=== PATIENT | female | born 1955 ===

== ENCOUNTER 2017-06-12 12:48 | Inpatient (IN) | payer OTHER ==
[2017-06-12] MEDS ORDERED: Sodium Chloride 0.9% 500 ML IV STA (13:10)
--- NOTE | 2017-06-12 13:17 | ED PDOC ---
HPI:STROKE - Time Time: 13:12 - Historian Historian: Patient - Chief Complaint Chief Complaint: Weakness - Onset Date: 05/22/17 Time: 15:00 - Timing Timing: Currently Symptomatic - TPA Positive for Contraindication: Yes Reason tPA is not being Administered: out of thrombolytic time frame - Notes: Notes:: Pt. with dizziness off and on for 3 week and more constant today. Pt. also feels she is going to the right when walking for 3 weeks. Feels weak all over. No numbness, tingles. Mild headache, not the worst in her life. No chest pain. Today had dyspnea. No abd pain. Nasuea when dizzy. No diarrhea. No dysuria. Seen at the clinic and sent to the ED. Pt. has not been taking any of her meds. NIHSS Stroke Scale - Date/Time Evaluation Performed Date Performed: 06/12/17 Time Performed: 13:17 When Was NIHSS Performed: Baseline - How Severe is the Stroke Level of Consciousness: 0=Alert LOC to Questions: 0=Both comments correct LOC to commands: 0=Obeys both correctly Best Gaze: 0=Normal Visual: 0=No visual loss Facial: 0=Normal Motor Arm - Left: 0=No drift Motor Arm - Right: 0=No drift Motor Leg - Left: 0=No drift Motor Leg - Right: 0=No drift Limb Ataxia: 0=Absent Sensory: 0=Normal Best Language: 0=No aphasia Dysarthia: 0=Normal articulation Extinction & Inattention (Neglect): 0=Normal, no object Score: 0 rTPA Inclusion/Exclusion - Refusal of Treatment Patient Refused Treatment: No - Inclusion Criteria for Altepase Patient is 18 years or Older: Yes The Clinical Diagnosis of Ischemic Stroke That is Causing a Potentially Disabling Neurological Deficit: No Time of Onset is Well Established to be Less Than 270 Minute Before Treatment Would Begin: No Risk/Benefit Discussed With Patient/Family Member Present: No Past Medical History Vital Signs: Last Vital Signs Temp 98.0 F 06/12/17 12:51 Pulse 66 06/12/17 12:51 Resp 16 06/12/17 12:51 BP 190/70 H 06/12/17 12:51 Pulse Ox 100 06/12/17 12:51 - Medical History PMH: Arthritis, Asthma, Diabetes, HTN, Hypercholesterolemia - Surgical History Surgical History: Denies: Appendectomy - Family History Family History: States: Unknown Family Hx - Social History Current smoker - smoking cessation education provided: No Alcohol: None Drugs: Denies - Home Medications Home Medications: Ambulatory Orders Medication Instructions Recorded RX: No Known Home Med 06/12/17 - Allergies Allergies/Adverse Reactions: Allergies Allergy/AdvReac Type Severity Reaction Status Date / Time No Known Allergies Allergy Verified 06/18/16 08:39 Review of Systems ROS Statement: Except As Marked, All Systems Reviewed And Found Negative Constitutional: Positive for: Weakness Cardiovascular: Positive for: Light Headedness Gastrointestinal: Positive for: Nausea Neurological: Positive for: Weakness, Incoordination, Headache, Dizziness Physical Exam - Reviewed Nursing Documentation Reviewed: Yes Vital Signs Reviewed: Yes - Physical Exam Appears: Positive for: Non-toxic, No Acute Distress Head Exam: Positive for: ATRAUMATIC, NORMAL INSPECTION, NORMOCEPHALIC Skin: Positive for: Normal Color, Warm, DRY Eye Exam: Positive for: EOMI, Normal appearance, PERRL ENT: Positive for: Normal ENT Inspection Neck: Positive for: Normal, Painless ROM, Supple Cardiovascular/Chest: Positive for: Regular Rate, Rhythm. Negative for: Edema Respiratory: Positive for: CNT, Normal Breath Sounds Gastrointestinal/Abdominal: Positive for: Normal Exam, Bowel Sounds, Soft. Negative for: Tenderness Back: Positive for: Normal Inspection. Negative for: L CVA Tenderness, R CVA Tenderness Extremity: Positive for: Normal ROM. Negative for: Tenderness, Pedal Edema Neurologic/Psych: Positive for: Alert, actuarial internship II-XII, Oriented. Negative for: Motor/Sensory Deficits, Aphasia, Facial Droop - Laboratory Results Result Diagrams: 06/12/17 13:30 06/12/17 13:30 Interpretation Of Abn Labs: no acute - ECG ECG: Positive for: Interpreted By Me, Viewed By Me ECG Rhythm: Positive for: Normal QRS, Sinus Rhythm, Nonspecific Changes O2 Sat by Pulse Oximetry: 100 Pulse Ox Interpretation: Normal - Radiology X-Ray: Read By Radiologist X-Ray Interpretation: No Acute Disease - CT Scan/US head Other Rad Studies (CT/US): Read By Radiologist Other Rad Interpretation: no acute - Progress ED Course And Treament: 1438: Stable. AAOx3. Feels better. Will need admit for further cva eval. Spoke with [facility] resident. Will admit tele obs. Disposition - Clinical Impression Clinical Impression: Dizziness - Patient ED Disposition Is Patient to be Admitted: Yes Counseled Patient/Family Regarding: Studies Performed, Diagnosis - Disposition Disposition Time: 14:39 Condition: FAIR - Pt Status Changed To: Hospital Disposition Of: Observation
[2017-06-12 13:50] LABS: BASO # 0.1 K/uL (0.0-0.2); BASO % 0.6 % (0.0-2.0); EOS # 0.2 K/uL (0.0-0.7); EOS % 2.3 % (0.0-4.0); LYMPH # 2.8 K/uL (1.0-4.3); LYMPH % 31.2 % (20.0-40.0); MEAN CELL VOLUME 83.1 fl (81.0-99.0); MEAN CORPUSCULAR HEMOGLOBIN 27.8 pg (27.0-31.0); MEAN CORPUSCULAR HGB CONC 33.5 g/dL (33.0-37.0); MEAN PLATELET VOLUME 8.5 fl (7.2-11.7); MONO # 0.5 K/uL (0.0-0.8); MONO % 5.4 % (0.0-10.0); NEUT # 5.4 K/uL (1.8-7.0); NEUT % 60.5 % (50.0-75.0); NRBC % 0.1 % (0.0-0.0); RED CELL DISTRIBUTION WIDTH 14.6 % (11.5-14.5)
[2017-06-12 13:58] LABS: ALB/GLOB RATIO 1.5 (1.0-2.1); ALKALINE PHOSPHATASE 93 U/L (38-126); ALT/SGPT 41 U/L (9-52); AST/SGOT 23 U/L (14-36); BILIRUBIN,TOTAL 0.5 mg/dl (0.2-1.3); BLOOD UREA NITROGEN 21 mg/dl (7-17); CALCIUM 10.1 mg/dL (8.4-10.2); CARBON DIOXIDE 27 mmol/L (22-30); CHLORIDE 104 mmol/L (98-107); CHOLESTEROL 198 mg/dL (0-199); GFR AFRICAN-AMERICAN > 60; GLUCOSE,RANDOM 87 mg/dL (65-105); POTASSIUM 3.8 MMOL/L (3.6-5.0); SODIUM 141 mmol/l (132-148); TOTAL PROTEIN 7.5 G/DL (6.3-8.2)
--- NOTE | 2017-06-12 14:29 | CT ---
PROCEDURE: CT HEAD WITHOUT CONTRAST. HISTORY: cva eval COMPARISON: 01/10/2014 TECHNIQUE: Axial computed tomography images were obtained through the head/brain without intravenous contrast. Radiation dose: Total exam DLP = 884.93 mGy-cm. This CT exam was performed using one or more of the following dose reduction techniques: Automated exposure control, adjustment of the mA and/or kV according to patient size, and/or use of iterative reconstruction technique. FINDINGS: HEMORRHAGE: No intracranial hemorrhage. BRAIN: No mass effect or edema. No atrophy or chronic microvascular ischemic changes. VENTRICLES: No hydrocephalus. Mild asymmetry of the lateral ventricles, right larger than left. This is likely developmental and is unchanged from prior examination. CALVARIUM: Unremarkable. PARANASAL SINUSES: Unremarkable as visualized. No significant inflammatory changes. MASTOID AIR CELLS: Unremarkable as visualized. No inflammatory changes. OTHER FINDINGS: None. IMPRESSION: No evidence of acute infarct. No intracranial hemorrhage.
--- NOTE | 2017-06-12 14:32 | RAD ---
HISTORY: cva eval COMPARISON: 01/10/2014. FINDINGS: LUNGS: No active pulmonary disease. PLEURA: No significant pleural effusion identified, no pneumothorax apparent. CARDIOVASCULAR: No radiographic findings to suggest acute or significant cardiovascular disease. OSSEOUS STRUCTURES: No significant abnormalities. VISUALIZED UPPER ABDOMEN: Normal. OTHER FINDINGS: None. IMPRESSION: No active disease. No significant interval change compared to the prior examination(s).
[2017-06-12] MEDS ORDERED: Labetalol 5 mg/ml Inj 20ML IVP STA (14:40)
--- NOTE | 2017-06-12 17:09 | CP.PCM.HP ---
History of Present Illness - History of Present Illness History of Present Illness: 62 yr old F with a PMHx including DM Type 2, HTN, asthma and Hypercholesterolemia who presents to ED today after being sent from [facility] for worsening acute dizziness and fatigue x 3 weeks. Patient states at first the episodes lasted a few minutes, but now they last up to several hours at a time and increase in frequency when she is walking. Denies chest pain, cold or heat intolerance, fever, chills, vision change, diarrhea, or vomiting. Rest alleviates her symptoms. Associated symptoms are palpitations, intermittent headaches and nausea 2 days ago, for which she measured her BP at [facility] and it was 209/88 mmHg. She has not taken any medication for her DM and HTN 6 months now due to increased stress at work, and at home as she takes care of her who is sick. The patient also noted that in the past she had bad skin reactions to her blood pressure medications, which made her hesitant to take them regularly. PMD: [facility] ObGyn: , LMP 15 years ago. PMHx: Uncontrolled Hypertension, Uncontrolled Diabetes. Asthma. Arthritis. Hypercholesterolemia. FHx: Hypertension (Mother). COPD (Father). SocHx: Denied any tobacco use. Social ETOH 1-2 drinks at parties or on holidays. 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 Sister in law and brother live above her in the same building Medications: The patient is not currently taking any medications. Allergies: Banana, unknown prior blood pressure medication that caused her skin to burn ED Course: BP 190/70 mmHg, HR 66, T 98.0 F, RR 16 EKG: Sinus bradycardia (official report pending) CXR: no active pulmonary disease CT head: no evidence of acute infarct, no ICH Labs: CBC wnl, CMP wnl, coags wnl, Troponin negative x 1, lipid panel wnl, HbA1c 6.6 ED meds: ASA 325mg PO once, Labetalol 10mg IV stat , Meclizine 25mg PO once Present on Admission - Present on Admission Any Indicators Present on Admission: Yes History of DVT/PE: No History of Uncontrolled Diabetes: Yes Urinary Catheter: No Decubitus Ulcer Present: No Review of Systems - Review of Systems All systems: reviewed and no additional remarkable complaints except (other than what is mentioned in the HPI) Past Patient History - Past Social History Alcohol: None Drugs: Denies - CARDIAC Hx Hypercholesterolemia: Yes Hx Hypertension: Yes - PULMONARY Hx Asthma: Yes - MUSCULOSKELETAL/RHEUMATOLOGICAL Hx Arthritis: Yes - PSYCHIATRIC Hx Substance Use: No - SURGICAL HISTORY Hx Appendectomy: No - ANESTHESIA Hx Anesthesia: Yes Hx Anesthesia Reactions: No Meds Allergies/Adverse Reactions: Allergies Allergy/AdvReac Type Severity Reaction Status Date / Time No Known Allergies Allergy Verified 06/18/16 08:39 Physical Exam - Constitutional Appears: Non-toxic, No Acute Distress, Other (obese) - Head Exam Head Exam: ATRAUMATIC, NORMOCEPHALIC - Eye Exam Eye Exam: EOMI, PERRL - ENT Exam ENT Exam: Mucous Membranes Moist - Neck Exam Neck exam: Positive for: Full Rom. Negative for: Lymphadenopathy - Respiratory Exam Respiratory Exam: Clear to Auscultation Bilateral, NORMAL BREATHING PATTERN - Cardiovascular Exam Cardiovascular Exam: REGULAR RHYTHM, +S1, +S2, Systolic Murmur - GI/Abdominal Exam GI & Abdominal Exam: Normal Bowel Sounds, Soft (obese). absent: Distended, Tenderness - Extremities Exam Extremities exam: Positive for: full ROM (strength 5/5 in bilateral upper and lower extremities), normal capillary refill, pedal pulses present. Negative for : calf tenderness, pedal edema - Back Exam Back exam: absent: CVA tenderness (L), CVA tenderness (R) - Neurological Exam Neurological exam: Alert, CN II-XII Intact, Oriented x3 Results - Vital Signs Recent Vital Signs: Last Vital Signs Temp 98.4 F 06/12/17 13:17 Pulse 65 06/12/17 13:17 Resp 18 06/12/17 13:17 BP 209/87 H 06/12/17 13:17 Pulse Ox 100 06/12/17 14:39 - Labs Result Diagrams: 06/12/17 13:30 06/12/17 13:30 Assessment & Plan - Assessment and Plan (Free Text) Assessment: 62 yr F admitted for worsening dizziness and fatigue x 3 weeks and uncontrolled HTN. EKG showed sinus bradycardia with no ST-T changes. Troponin was negative x 1. CT head negative for ICH or acute infarct. Neurology is on board. Patient refused MRI brain d/t severe claustrophobia and reports medication does not work to help her get through the MRI. Plan: Worsening dizziness and fatigue -acute, stable -r/o CVA vs ACS -CT head: negative for ICH or acute infarct -EKG showed sinus bradycardia with no ST-T changes. Troponin was negative x 1 -f/u serial troponin, repeat EKG in AM, carotid and vertebral US -f/u labs : TSH, B12, Folate, and Vitamin D -Neurology on board-Dr. Vidal: start Plavix 75mg PO QD, pt refused MRI Brain -admit to Tele for further management -NPO until recommendations from speech and swallow eval -PT/OT eval and treat Uncontrolled Hypertension: -uncontrolled, chronic -patient did not take medications for 6 months -start HCTZ 25mg PO QD, Norvasc 10mg PO QD -monitor BP Uncontrolled Diabetes Mellitus Type 2 -HbA1C 6.6, Lipid Panel wnl -start Metformin 500mg PO QD with breakfast -Accucheck ACHS Depression: -stable, denies SI/HI -will consider medication - Date & Time Date: 06/12/17 Time: 16:00
[2017-06-12 21:13] LABS: THYROID STIMULATING HORMONE 2.72 mIU/ML (0.46-4.68)
[2017-06-13] MEDS: Enoxaparin 40 mg Syringe SC SCH (09:11)
--- NOTE | 2017-06-13 09:48 | US ---
PROCEDURE: Duplex Doppler carotid arterial ultrasound examination HISTORY: CVA vs TIA COMPARISON: 01/11/2014 TECHNIQUE: Ultrasound examination of the carotid arteries was performed utilizing a linear array color Doppler transducer. FINDINGS: RIGHT CAROTID ARTERY: Mild atheromatous plaque in the proximal internal carotid artery. Tortuous right internal carotid artery noted. Peak systolic velocity measurements: CCA: 77.4 cm/sec ICA: 111.2 cm/sec ICA/CCA peak systolic velocity ratio: 1.4 Antegrade flow demonstrated in the right vertebral artery LEFT CAROTID ARTERY: Mild calcified atheromatous plaque in the proximal internal carotid artery and carotid bulb. Peak systolic velocity measurements: CCA: 56.8 cm/sec ICA: 87.5 cm/sec ICA/CCA peak systolic velocity ratio: 1.5 Antegrade flow demonstrated in left vertebral artery IMPRESSION: Less than 50 percent stenosis of the right and left internal carotid arteries.
--- NOTE | 2017-06-13 10:20 | CARD ---
APPROVED REPORT EKG Measurement Heart [id number] [id number] <Conclusion> Sinus bradycardia Nonspecific T wave abnormality Abnormal ECG
--- NOTE | 2017-06-13 10:23 | CP.PCM.PN ---
Subjective - Date & Time of Evaluation Date of Evaluation: 06/13/17 Time of Evaluation: 08:30 - Subjective Subjective: Patient seen and examined at bedside. Reports her weakness and fatigue persist. Denies chest pain, SOB, visual changes, nausea or vomiting. Patient continues to refuse Brain MRI due to her severe claustrophobia which is not alleviated by medication. Objective - Vital Signs/Intake and Output Vital Signs (last 24 hours): Temp Pulse Resp BP Pulse Ox 98.4 F 67 20 147/85 98 06/13/17 08:00 06/13/17 09:11 06/13/17 08:00 06/13/17 09:11 06/13/17 08:00 - Medications Medications: Current Medications Amlodipine Besylate (Norvasc) 10 mg PO DAILY [facility] Last Admin: 06/13/17 09:11 Dose: 10 mg Clopidogrel Bisulfate (Plavix) 75 mg PO DAILY [facility] Last Admin: 06/13/17 09:10 Dose: 75 mg Enoxaparin Sodium (Lovenox) 40 mg SC DAILY [facility] PRN Reason: Protocol Last Admin: 06/13/17 09:11 Dose: 40 mg Hydrochlorothiazide (Hydrodiuril) 25 mg PO DAILY [facility] Last Admin: 06/13/17 09:10 Dose: 25 mg Metformin HCl (Glucophage) 500 mg PO BRK [facility] Last Admin: 06/13/17 09:10 Dose: 500 mg - Labs Labs: PT 12.2 Seconds (9.8-13.1) 06/12/17 13:30 INR 1.1 (0.9-1.2) 06/12/17 13:30 APTT 29.0 Seconds (25.6-37.1) 06/12/17 13:30 - Constitutional Appears: Non-toxic, No Acute Distress - Head Exam Head Exam: ATRAUMATIC, NORMOCEPHALIC - Eye Exam Eye Exam: EOMI, PERRL - ENT Exam ENT Exam: Mucous Membranes Moist - Neck Exam Neck Exam: Full ROM - Respiratory Exam Respiratory Exam: Clear to Ausculation Bilateral, NORMAL BREATHING PATTERN - Cardiovascular Exam Cardiovascular Exam: REGULAR RHYTHM - GI/Abdominal Exam GI & Abdominal Exam: Soft (obese), Normal Bowel Sounds. absent: Distended, Tenderness - Extremities Exam Extremities Exam: Full ROM. absent: Calf Tenderness, Pedal Edema - Back Exam Back Exam: absent: CVA tenderness (L), CVA tenderness (R) - Neurological Exam Neurological Exam: Alert, Awake, CN II-XII Intact, Oriented x3 - Psychiatric Exam Psychiatric exam: Depressed, Flat Affect - Skin Skin Exam: Dry, Intact, Warm Assessment and Plan - Assessment and Plan (Free Text) Assessment: 62 yr old F admitted for worsening dizziness and fatigue x 3 weeks and uncontrolled HTN. EKG showed sinus bradycardia with no ST-T changes. Serial troponins negative x 3. CT head negative for ICH or acute infarct. Neurology is on board. Patient continues to refuse Brain MRI d/t severe claustrophobia which is not alleviated by medication. Plan: Worsening Dizziness and Fatigue -acute, stable -ACS ruled out -r/o TIA vs CVA -CT head: negative for ICH or acute infarct -EKG showed sinus bradycardia with no ST-T changes. Serial troponins negative x 3 -Carotid Artery US: less than 50% stenosis on right and left internal carotid arteries -TSH, FT4 and B12 wnl, folate pending -Neurology is on board-Dr. Vidal: start Plavix 75mg PO QD, pt refuses Brain MRI -PT/OT eval and treat Hypertension -uncontrolled, chronic -continue with HCTZ 25mg PO QD, Norvasc 10mg PO QD -monitor BP Diabetes Mellitus Type 2 -uncontrolled, HbA1c 6.6, lipid panel wnl -continue Metformin 500mg PO QD -Accucheck ACHS Depression -stable, denies SI/HI -will consider Lexapro on discharge DVT prophylaxis -Lovenox 40mg SC QD
--- NOTE | 2017-06-13 11:04 | CARD ---
APPROVED REPORT EXAM: Two-dimensional and M-mode echocardiogram with Doppler and color Doppler. Other Information Quality : GoodRhythm : NSR INDICATION Dizziness and Vertigo 2D DIMENSIONS IVSd2.16 (0.7-1.1cm)LVDd3.91 (3.9-5.9cm) LVOT Diameter1.58 (1.8-2.4cm)PWd1.25 (0.7-1.1cm) IVSs2.07 (0.8-1.2cm)LVDs2.35 (2.5-4.0cm) FS (%) 39.9 %PWs2.09 (0.8-1.2cm) M-Mode DIMENSIONS Left Atrium (MM)3.97 (2.5-4.0cm)IVSd1.24 (0.7-1.1cm) Aortic Root2.68 (2.2-3.7cm)LVDd4.97 (4.0-5.6cm) Aortic Cusp Exc.1.76 (1.5-2.0cm)PWd1.56 (0.7-1.1cm) IVSs2.00 cmFS (%) 49 % LVDs2.56 (2.0-3.8cm)PWs2.03 cm Mitral Valve MV E Jahgikln13.7cm/sMV DECEL [id number] A Nkwleamp30.3cm/s MV PWS20rdW/A ratio0.7MVA (PHT)2.77cm2 TDI Lateral E' Peak V8.47cm/sMedial E' Peak V5.70cm/sE/Lateral E'7.4 E/Medial E'11.0 Pulmonary Valve PV Peak Dnfyvtra352.0cm/s LEFT VENTRICLE The left ventricle is normal size. There is mild concentric left ventricular hypertrophy. The left ventricular function is normal. The left ventricular ejection fraction is - 75%. There is normal LV segmental wall motion. Transmitral Doppler flow pattern is Grade I-abnormal relaxation pattern. No left ventricle thrombus noted on this study. There is no ventricular septal defect visualized. There is no left ventricular aneurysm. There is no mass noted in the left ventricle. RIGHT VENTRICLE The right ventricle is normal size. There is normal right ventricular wall thickness. The right ventricular systolic function is normal. ATRIA The left atrium size is normal. There is no thrombus suspected in the left atrium. The right atrium size is normal. The interatrial septum is intact with no evidence for an atrial septal defect. AORTIC VALVE The aortic valve is normal in structure and function. No aortic regurgitation is present. There is no aortic valvular stenosis. MITRAL VALVE The mitral valve is normal in structure and function. There is no evidence of mitral valve prolapse. There is no mitral valve stenosis. There is no mitral valve regurgitation noted. TRICUSPID VALVE The tricuspid valve is normal in structure and function. There is no tricuspid valve regurgitation noted. There is no tricuspid valve prolapse or vegetation. There is no tricuspid valve stenosis. PULMONIC VALVE The pulmonic valve is not well visualized. There is no pulmonic valvular regurgitation. GREAT VESSELS The aortic root is normal in size. The IVC is normal in size and collapses >50% with inspiration. PERICARDIAL EFFUSION There is a small anterior echo free space. There is no pleural effusion. <Conclusion> The left ventricle is normal size. There is mild concentric left ventricular hypertrophy. The left ventricular function is normal. The left ventricular ejection fraction is - 75%. The left atrium, right ventricle and right atrium are normal in size. The mitral, aortic and tricuspid valves are normal.
[2017-06-13 12:41] LABS: FOLATE 15.1 ng/mL
[2017-06-14 06:20] LABS: HOMOCYSTEINE 8.7 umol/L (<10.4)
--- NOTE | 2017-06-14 06:22 | CON ---
DATE: 06/13/2017 REASON FOR THE CONSULTATION: Speech impairment. CHIEF COMPLAINT: The patient was brought into [facility] with speech impairment, with uncontrolled hypertension. In the emergency room, the patient also found to have problem of getting worse out and problem in articulation as well. From a neurological point of view, I was called in to evaluate her for further management. HISTORY OF PRESENT ILLNESS: Ms. Brie Velasco is a 62-year-old right-handed moderately obese female, came to [facility] for hypertensive problem. In the emergency room during the evaluation, the patient had a problem of getting words out properly and inability to read well. This episode lasted for about an hour, not associating with visual or sensory motor dysfunction. No history of involuntary movements. PAST MEDICAL HISTORY: Non-insulin dependent diabetes mellitus, hypertension. ALLERGIES: BANANA AND ENALAPRIL. REVIEW OF SYSTEMS: As per H&P. PHYSICAL EXAMINATION VITAL SIGNS: Blood pressure 151/75, mean arterial pressure of 100, respiratory rate 16, temperature afebrile. NECK: Supple. No carotid bruit. HEART: Sounds regular with a systolic murmur. NEUROLOGICAL: Mental status examination: She is awake, alert and oriented to person, place and time. Speech is clear. Naming, repetition, fluency, comprehension all within normal. CRANIAL NERVE EXAMINATION: Visual field intact. Pupils reactive to light. Extraocular movements normal. No nystagmus. No facial sensory deficit. No facial asymmetry. Hearing is normal. Tongue is midline. Good gag. MOTOR EXAMINATION: Outstretched hand with eyes closed. No drift noted. Power is symmetric on either side. DEEP TENDON REFLEXES: Biceps to brachialis, triceps 2+. Both knees are trace. Both ankles are absent. Plantars are downgoing. Gait is normal. She could able to march in one place with eyes closed. CONCLUSION: Upon reviewing her history and neurological examination, Ms. Brie Velasco has been presenting with episode of inability to get words out, suggestive of possible nondominant hemispheric ischemic process. 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 WORKUP: CT of the head reviewed by me, no acute pathology is noted. PT 12.2, PTT 29.0, glucose of 137. RPR nonreactive. RECOMMENDATION: Currently, Doppler and MRI brain to rule out any ischemic process, continue anti-platelets with statin and [place] inhibitors or angiotensin receptive blockers. The patient has hypertension, weight and blood pressure should be controlled. The patient should also have a polysomnogram as an outpatient to rule out sleep related breathing disorder which can be done as outpatient. The patient will be followed closely with you. Paul Vidal MD
[2017-06-14] MEDS: Enoxaparin 40 mg Syringe SC SCH (09:28)
--- NOTE | 2017-06-14 12:38 | CP.PCM.DIS ---
Provider - Provider Date of Admission: 06/13/17 12:02 Attending physician: Jaqueline Warren MD Primary care physician: [facility] Consults: Dr. Vidal- neurology Time Spent in preparation of Discharge (in minutes): 30 Diagnosis - Discharge Diagnosis (1) Uncontrolled hypertension Status: Acute Priority: High (2) Dizziness Status: Acute Priority: Low Comment: CVA and ACS ruled out Hospital Course - Lab Results Lab Results: Most Recent Lab Values WBC 9.0 K/uL (4.8-10.8) 06/12/17 13:30 RBC 5.29 Mil/uL (3.80-5.20) H 06/12/17 13:30 Hgb 14.7 g/dL (12.0-16.0) 06/12/17 13:30 Hct 44.0 % (34.0-47.0) 06/12/17 13:30 MCV 83.1 fl (81.0-99.0) D 06/12/17 13:30 MCH 27.8 pg (27.0-31.0) 06/12/17 13:30 MCHC 33.5 g/dL (33.0-37.0) 06/12/17 13:30 RDW 14.6 % (11.5-14.5) H 06/12/17 13:30 Plt Count 247 K/uL (130-400) 06/12/17 13:30 MPV 8.5 fl (7.2-11.7) 06/12/17 13:30 Neut % (Auto) 60.5 % (50.0-75.0) 06/12/17 13:30 Lymph % (Auto) 31.2 % (20.0-40.0) 06/12/17 13:30 Dare % (Auto) 5.4 % (0.0-10.0) 06/12/17 13:30 Eos % (Auto) 2.3 % (0.0-4.0) 06/12/17 13:30 Baso % (Auto) 0.6 % (0.0-2.0) 06/12/17 13:30 Neut # 5.4 K/uL (1.8-7.0) 06/12/17 13:30 Lymph # 2.8 K/uL (1.0-4.3) 06/12/17 13:30 Dare # 0.5 K/uL (0.0-0.8) 06/12/17 13:30 Eos # 0.2 K/uL (0.0-0.7) 06/12/17 13:30 Baso # 0.1 K/uL (0.0-0.2) 06/12/17 13:30 ESR 10 mm/hr (0-30) 06/13/17 06:15 PT 12.2 Seconds (9.8-13.1) 06/12/17 13:30 INR 1.1 (0.9-1.2) 06/12/17 13:30 APTT 29.0 Seconds (25.6-37.1) 06/12/17 13:30 Sodium 141 mmol/l (132-148) 06/12/17 13:30 Potassium 3.8 MMOL/L (3.6-5.0) 06/12/17 13:30 Chloride 104 mmol/L (98-107) 06/12/17 13:30 Carbon Dioxide 27 mmol/L (22-30) 06/12/17 13:30 Anion Gap 14 (10-20) 06/12/17 13:30 BUN 21 mg/dl (7-17) H 06/12/17 13:30 Creatinine 0.6 mg/dL (0.7-1.2) L 06/12/17 13:30 Est GFR ( Amer) > 60 06/12/17 13:30 Est GFR (Non-Af Amer) > 60 06/12/17 13:30 POC Glucose (mg/dL) 80 mg/dL (65-110) 06/14/17 11:02 Random Glucose 87 mg/dL (65-105) 06/12/17 13:30 Hemoglobin A1c 6.6 % (4.2-6.5) H 06/12/17 13:30 Calcium 10.1 mg/dL (8.4-10.2) 06/12/17 13:30 Total Bilirubin 0.5 mg/dl (0.2-1.3) 06/12/17 13:30 AST 23 U/L (14-36) 06/12/17 13:30 ALT 41 U/L (9-52) 06/12/17 13:30 Alkaline Phosphatase 93 U/L (38-126) 06/12/17 13:30 Troponin I < 0.0120 ng/mL (0.00-0.120) 06/13/17 06:15 C-React Prot High Sens 4.03 mg/L (1.00-3.00) H 06/13/17 06:15 Total Protein 7.5 G/DL (6.3-8.2) 06/12/17 13:30 Albumin 4.5 g/dL (3.5-5.0) 06/12/17 13:30 Globulin 3.0 gm/dL (2.2-3.9) 06/12/17 13:30 Albumin/Globulin Ratio 1.5 (1.0-2.1) 06/12/17 13:30 Triglycerides 122 mg/DL (0-149) 06/12/17 13:30 Cholesterol 198 mg/dL (0-199) 06/12/17 13:30 LDL Cholesterol Direct 95 mg/dL (0-129) 06/12/17 13:30 HDL Cholesterol 67 MG/DL (30-70) 06/12/17 13:30 Vitamin B12 720 pg/mL (239-931) 06/12/17 20:27 25-OH Vitamin D Total 16.4 NG/ML (30.0-100.0) L 06/12/17 20: Folate 15.1 ng/mL 06/12/17 20: Homocysteine 8.7 umol/L ( <10.4) 06/13/17 06:15 Free T4 0.96 ng/dL (0.78-2.19) 06/12/17 20:27 TSH 3rd Generation 2.72 mIU/ML (0.46-4.68) 06/12/17 20:27 RPR Nonreactive (NONREACTIVE) 06/13/17 06:15 Blood Type B NEGATIVE 06/12/17 13:30 Antibody Screen Negative 06/12/17 13:30 BBK History Checked No verified bt 06/12/17 13:30 - Hospital Course Hospital Course: 62 yr old F admitted for worsening dizziness and fatigue x 3 weeks and uncontrolled HTN. EKG showed sinus bradycardia with no ST-T changes. Serial troponins negative x 3. CT head negative for ICH or acute infarct. Neurology was on consult. Patient refused Brain MRI d/t severe claustrophobia and would prefer to set it up as outpatient at an open MRI facility. Patient symptoms resolved and hypertension was controlled with medication adjustment. Patient was discharged stable with instructions to take Valsartan/HCTZ 80/12.5 mg PO daily, Amlodipine 10mg PO daily, Plavix 75mg PO daily, Metformin 500mg PO daily , follow up with PMD Dr. Rosa on 06/18/17 at 10am at [facility], follow up with Dr. Vidal -neurology as outpatient, get referral from PMD for Polysomnography as outpatient. Patient refused statin recommended by neuro as she said she has adverse reactions to statins. - Date & Time of H&P Date of H&P: 06/12/17 Time of H&P: 16:48 Discharge Exam - Head Exam Head Exam: ATRAUMATIC, NORMOCEPHALIC - Eye Exam Eye Exam: EOMI, PERRL - ENT Exam ENT Exam: Mucous Membranes Moist - Neck Exam Neck exam: Full Rom - Respiratory Exam Respiratory Exam: Clear to PA & Lateral, NORMAL BREATHING PATTERN - Cardiovascular Exam Cardiovascular Exam: REGULAR RHYTHM, +S1, +S2 - GI/Abdominal Exam GI & Abdominal Exam: Normal Bowel Sounds, Soft (obese) - Extremities Exam Extremities exam: full ROM - Back Exam Back exam: absent: CVA tenderness (L), CVA tenderness (R) - Neurological Exam Neurological exam: Alert, CN II-XII Intact, Oriented x3 - Psychiatric Exam Psychiatric exam: Normal Affect, Normal Mood - Skin Skin Exam: Dry, Intact, Warm Discharge Plan - Discharge Medications Prescriptions: amLODIPine [Norvasc] 10 mg PO DAILY #30 tab Clopidogrel [Plavix] 75 mg PO DAILY #30 tab metFORMIN [glucOPHAGE] 500 mg PO BRK #30 tab Valsartan/Hydrochlorothiazide [Valsartan-Hctz 80-12.5 mg Tab] 1 each PO DAILY # 30 tablet - Follow Up Plan Condition: FAIR Disposition: HOME/ ROUTINE Instructions: Heart Healthy Diet (DC), Diabetes Mellitus Type 2 in Adults (DC) , Calorie Counting Diet (GEN), Chronic Hypertension (DC) Additional Instructions: -Take Valsartan/HCTZ 80/12.5 mg PO daily, Amlodipine 10mg PO daily, Plavix 75mg PO daily, Metformin 500mg PO daily -Follow up with PMD Dr. Rosa on 06/18/17 at 10am -Follow up with Dr. Vidal -neurology as outpatient Referrals: Paul Vidal MD [Medical Doctor] - Patricio Rosa MD [Resident] -
[2017-06-14 12:51] VITALS: BP 126/78; PULSE 68; RESP 20; TEMP 98.5; O2SAT 96
== END 2017-06-14 14:30 | disposition home or self-care (01) | DRG 305 ==
LOC: H.ER 12:48 → H.ERHOLD 14:40 → H.TEL 18:36 → OBSVTOIN 06-13 12:02
PROVIDERS: ADMIT Family Medicine; ATTEND Family Medicine
DX: I10 Essential (primary) hypertension (principal); E11.42 Type 2 diabetes mellitus with diabetic polyneuropathy; Z68.41 Body mass index [BMI] 40.0-44.9, adult; E66.9 Obesity, unspecified; E78.00 Pure hypercholesterolemia, unspecified; J45.909 Unspecified asthma, uncomplicated; F40.240 Claustrophobia; R00.1 Bradycardia, unspecified; F32.9 Major depressive disorder, single episode, unspecified; Z91.018 Allergy to other foods; M19.90 Unspecified osteoarthritis, unspecified site; E11.65 Type 2 diabetes mellitus with hyperglycemia; Z53.29 Procedure and treatment not carried out because of patient's decision for other reasons

== ENCOUNTER 2017-11-27 09:16 | Emergency (ER) | payer OTHER ==
--- NOTE | 2017-11-27 11:29 | ED PDOC ---
HPI: Headache Time Seen by Provider: 11/27/17 10:28 Chief Complaint (Nursing): Headache Chief Complaint (Provider): Head injury History Per: Patient History/Exam Limitations: no limitations Onset/Duration Of Symptoms: Days (x6) Additional Complaint(s): 62 y/o female with a past medical history of asthma and hypertension, presents to the emergency department complaining of left-sided headache, after hitting the left side of her head on a medicine cabinet 6 days ago. Patient has now noticed pain to left side of head/neck, as well as numbness with tingling and burning sensation, and pressure behind eyes. Patient states she has never had a history of headaches in the past. No nausea, vomiting, or shortness of breath. PMD: Dr. Daniel Mcdaniels Past Medical History Reviewed: Historical Data, Nursing Documentation, Vital Signs Vital Signs: Last Vital Signs Temp 97.5 F L 11/27/17 09:26 Pulse 69 11/27/17 09:26 Resp 20 11/27/17 09:26 BP 145/62 11/27/17 09:26 Pulse Ox 97 11/27/17 09:26 - Medical History PMH: Arthritis, Asthma, Diabetes, HTN, Hypercholesterolemia Denies: Chronic Kidney Disease - Surgical History Surgical History: Denies: Appendectomy Other surgeries: Left knee surgery, pilonidal cyst removal - Family History Family History: States: Unknown Family Hx - Social History Current smoker - smoking cessation education provided: No Alcohol: None Drugs: Denies - Home Medications Home Medications: Ambulatory Orders Medication Instructions Recorded Clopidogrel [Plavix] 75 mg PO DAILY #30 tab 06/14/17 Valsartan/Hydrochlorothiazide 1 each PO DAILY #30 tablet 06/14/17 [Valsartan-Hctz 80-12.5 mg Tab] amLODIPine [Norvasc] 10 mg PO DAILY #30 tab 06/14/17 metFORMIN [glucOPHAGE] 500 mg PO BRK #30 tab 06/14/17 - Allergies Allergies/Adverse Reactions: Allergies Allergy/AdvReac Type Severity Reaction Status Date / Time banana Allergy SWELLING Verified 06/13/17 03:23 enalaprilat [From Vasotec] AdvReac RASH Verified 06/13/17 03:25 Review of Systems ROS Statement: Except As Marked, All Systems Reviewed And Found Negative Constitutional: Negative for: Fever, Chills Eyes: Positive for: Other (pressure sensation behind eyes) Respiratory: Negative for: Shortness of Breath Gastrointestinal: Negative for: Nausea, Vomiting Neurological: Positive for: Numbness (and tingling, burning sensation), Headache (Left head/neck pain) Physical Exam - Reviewed Nursing Documentation Reviewed: Yes Vital Signs Reviewed: Yes - Physical Exam Appears: Positive for: No Acute Distress, Uncomfortable (tearful on exam) Head Exam: Positive for: ATRAUMATIC, NORMOCEPHALIC Skin: Positive for: Normal Color, Warm, Dry Eye Exam: Positive for: Normal appearance, EOMI, PERRL. Negative for: Nystagmus , Conjunctival injection ENT: Positive for: Normal ENT Inspection, TM Is/Are (normal bilaterally) Neck: Positive for: Normal, Painless ROM, Supple Cardiovascular/Chest: Positive for: Regular Rate, Rhythm. Negative for: Murmur Respiratory: Positive for: Normal Breath Sounds. Negative for: Accessory Muscle Use, Respiratory Distress Pulses-Radial (L): 2+ Pulses-Radial (R): 2+ Gastrointestinal/Abdominal: Positive for: Normal Exam, Bowel Sounds, Soft. Negative for: Tenderness Back: Positive for: Normal Inspection. Negative for: Vertebral Tenderness Extremity: Positive for: Normal ROM. Negative for: Pedal Edema, Deformity Neurologic/Psych: Positive for: Alert, Oriented. Negative for: Motor/Sensory Deficits - Laboratory Results Result Diagrams: 11/27/17 11:35 11/27/17 11:35 - ECG O2 Sat by Pulse Oximetry: 97 (RA) Pulse Ox Interpretation: Normal Medical Decision Making Medical Decision Making: Time: 11:08 Initial Plan: --CMP --CBC --Reglan 10 mg PO --CT Head w/o contrast --Pending reevaluation 12:[address] FINDINGS: HEMORRHAGE: No intracranial hemorrhage. BRAIN: No mass effect or edema. No atrophy or chronic microvascular ischemic changes. VENTRICLES: Stable mild asymmetry, right larger than left. No hydrocephalus. CALVARIUM: Unremarkable. PARANASAL SINUSES: Unremarkable as visualized. No significant inflammatory changes. MASTOID AIR CELLS: Unremarkable as visualized. No inflammatory changes. OTHER FINDINGS: None. IMPRESSION: No acute intracranial pathology. 14:00 Patient reports improvement in symptoms, and is stable for discharge home. Instructed to follow up in 1-2 days with PMD. There is agreement to discharge plan. Return if symptoms persist or worsen. Scribe Attestation: Documented by Becki Alvarez, acting as a scribe for Cathie Trejo MD Provider Scribe Attestation: All medical record entries made by the Scribe were at my direction and personally dictated by me. I have reviewed the chart and agree that the record accurately reflects my personal performance of the history, physical exam, medical decision making, and the department course for this patient. I have also personally directed, reviewed, and agree with the discharge instructions and disposition. Disposition - Clinical Impression Clinical Impression: Concussion - Patient ED Disposition Is Patient to be Admitted: No Counseled Patient/Family Regarding: Studies Performed, Diagnosis, Need For Followup - Disposition Referrals: [facility] [Outside] [facility] [Outside] Disposition: Routine/Home Disposition Time: 14:00 Condition: IMPROVED Additional Instructions: follow up with your primary doctor in 1-2 days return to the ED with any worsening or concerning symptoms no sports, reading or television until improved Instructions: Concussion (ED) Forms: [employer] (Pashto)
[2017-11-27 11:42] LABS: BASO % 0.4 % (0.0-2.0); EOS # 0.2 K/uL (0.0-0.7); EOS % 2.5 % (0.0-4.0); HEMOGLOBIN 14.4 g/dL (12.0-16.0); LYMPH # 2.5 K/uL (1.0-4.3); LYMPH % 28.8 % (20.0-40.0); MEAN CELL VOLUME 84.1 fl (81.0-99.0); MEAN CORPUSCULAR HEMOGLOBIN 28.4 pg (27.0-31.0); MEAN CORPUSCULAR HGB CONC 33.8 g/dL (33.0-37.0); MEAN PLATELET VOLUME 8.5 fl (7.2-11.7); MONO # 0.5 K/uL (0.0-0.8); MONO % 6.1 % (0.0-10.0); NEUT # 5.4 K/uL (1.8-7.0); NEUT % 62.2 % (50.0-75.0); NRBC % 0.1 % (0.0-0.0); RBC 5.07 Mil/uL (3.80-5.20); RED CELL DISTRIBUTION WIDTH 14.1 % (11.5-14.5); WHITE BLOOD COUNT 8.6 K/uL (4.8-10.8)
[2017-11-27 12:04] LABS: ALB/GLOB RATIO 1.3 (1.0-2.1); ALBUMIN 4.6 g/dL (3.5-5.0); GFR AFRICAN-AMERICAN > 60; GFR NON-AFRICAN AMERICAN > 60
[2017-11-27 12:06] LABS: ALT/SGPT 32 U/L (9-52); AST/SGOT 26 U/L (14-36); BLOOD UREA NITROGEN 20 mg/dl (7-17)
--- NOTE | 2017-11-27 12:44 | CT ---
PROCEDURE: CT HEAD WITHOUT CONTRAST. HISTORY: headache COMPARISON: CT head dated 06/12/2017. TECHNIQUE: Axial computed tomography images were obtained through the head/brain without intravenous contrast. Radiation dose: Total exam DLP = 901.8 mGy-cm. This CT exam was performed using one or more of the following dose reduction techniques: Automated exposure control, adjustment of the mA and/or kV according to patient size, and/or use of iterative reconstruction technique. FINDINGS: HEMORRHAGE: No intracranial hemorrhage. BRAIN: No mass effect or edema. No atrophy or chronic microvascular ischemic changes. VENTRICLES: Stable mild asymmetry, right larger than left. No hydrocephalus. CALVARIUM: Unremarkable. PARANASAL SINUSES: Unremarkable as visualized. No significant inflammatory changes. MASTOID AIR CELLS: Unremarkable as visualized. No inflammatory changes. OTHER FINDINGS: None. IMPRESSION: No acute intracranial pathology.
[2017-11-27 14:27] VITALS: BP 139/72; PULSE 71; RESP 16; TEMP 97.2; O2SAT 98
== END 2017-11-27 14:27 | disposition home or self-care (01) ==
LOC: H.ER 09:16
DX: S06.0X0A Concussion without loss of consciousness, initial encounter (principal); W22.8XXA Striking against or struck by other objects, initial encounter; Y92.002 Bathroom of unspecified non-institutional (private) residence as the place of occurrence of the external cause; E11.9 Type 2 diabetes mellitus without complications; E78.00 Pure hypercholesterolemia, unspecified; I10 Essential (primary) hypertension; J45.909 Unspecified asthma, uncomplicated; Z79.84 Long term (current) use of oral hypoglycemic drugs

== ENCOUNTER 2018-07-30 09:42 | Emergency (ER) | payer BC, OTHER ==
--- NOTE | 2018-07-30 10:05 | ED PDOC ---
Arrival/HPI <Jean Carlos Medel III - Last Filed: 07/30/18 13:53> - General Historian: Patient - History of Present Illness Time/Duration: 1 week Symptom Course: Unchanged <Shaunna Castellanos - Last Filed: 07/30/18 14:00> - General Chief Complaint: Dizziness/Lightheaded - History of Present Illness Narrative History of Present Illness (Text): CC: nausea and diaphoresis HPI: 63 YO Female with PMHx of HTN, NIDDM, asthma presents to [facility] ED for nausea and diaphoresis. Pt states that her symptoms started about 1 week ago with changes in her bp, episodic in nature lasting a up to an hr. Pt states that for the past week her BP has been labile and goes as high as 217 and has gone as low as 130's systolic. Pt states that everytime her BP cycles she gets very nauseous and feels diaphoretic. Denies chest pain, palpitations, cough, fever, chills. Of note, pt states that for the past few months she gets fatigue more easily. She gets short of breath while taking care of her or with activity with occasional swelling of her legs. PMD: [facility] PMHx: HTN, NIDDM, asthma (well controlled) SurgHx: L leg surgery SHx: occasionally drinks wine, denies smoking and illicit drug use FHx: hx of HTN and DM in family Allergies: rash with enalapril and vasotec Meds: losartan 50mg PO daily, Asa 81mg and Metformin 500mg PO daily (Shaunna Castellanos) Past Medical History - Infectious Disease Hx of Infectious Diseases: None - Cardiac Hx Hypertension: Yes - Pulmonary Hx Asthma: Yes - Neurological Hx Neurological Disorder: No - HEENT Hx HEENT Disorder: No - Renal Hx Renal Disorder: No - Endocrine/Metabolic Hx Endocrine Disorders: Yes Hx Diabetes Mellitus Type 2: Yes - Hematological/Oncological Hx Blood Disorders: No - Integumentary Hx Dermatological Disorder: No - Musculoskeletal/Rheumatological Hx Arthritis: Yes - Gastrointestinal Hx Gastrointestinal Disorders: No - Genitourinary/Gynecological Hx Genitourinary Disorders: No - Psychiatric Hx Psychophysiologic Disorder: No Hx Substance Use: No - Surgical History Hx Appendectomy: No - Anesthesia Hx Anesthesia: Yes Hx Anesthesia Reactions: No Hx Malignant Hyperthermia: No <Shaunna Castellanos - Last Filed: 07/30/18 14:00> Family/Social History Family/Social History: Hypertension Smoking Status: Never Smoked Hx Alcohol Use: Yes Frequency of alcohol use: Socially Hx Substance Use: No <Shaunna Castellanos - Last Filed: 07/30/18 14:00> Allergies/Home Meds <Jean Carlos Medel III - Last Filed: 07/30/18 13:53> <Shaunna Castellanos - Last Filed: 07/30/18 14:00> Allergies/Adverse Reactions: Allergies banana Allergy (Verified 06/13/17 03:23) SWELLING enalaprilat [From Vasotec] Adverse Reaction (Verified 06/13/17 03:25) RASH Review of Systems - Review of Systems Constitutional: absent: Weight Change, Fevers Respiratory: SOB. absent: Cough, Wheezing Cardiovascular: Edema. absent: Chest Pain, Palpitations Gastrointestinal: absent: Abdominal Pain, Constipation, Diarrhea Genitourinary Female: absent: Dysuria, Frequency Musculoskeletal: Arthralgias <Shaunna Castellanos - Last Filed: 07/30/18 14:00> Physical Exam Vital Signs Reviewed: Yes - Systems Exam Head: Present: Atraumatic Extroacular Muscles: Present: EOMI Respiratory/Chest: Present: Clear to Auscultation, Good Air Exchange. No: Accessory Muscle Use, Wheezes Cardiovascular: Present: Regular Rate and Rhythm, Murmurs, Normal S1, S2 Abdomen: Present: Distention (obese), Normal Bowel Sounds. No: Tenderness Back: Present: Normal Inspection. No: CVA Tenderness Lower Extremity: Present: Normal Inspection. No: Edema, CALF TENDERNESS Neurological: Present: CN II-XII Intact Skin: Present: Cold (clammy ) Psychiatric: Present: Alert, Oriented x 3 <Shaunna Castellanos - Last Filed: 07/30/18 14:00> Vital Signs Temp Pulse Resp BP Pulse Ox 07/30/18 09:51 98.3 F 88 17 146/88 99 Medical Decision Making <Jean Carlos Medel III - Last Filed: 07/30/18 13:53> <Shaunna Castellanos - Last Filed: 07/30/18 14:00> ED Course and Treatment: 63 YO Female with nausea and diaphoresis. -EKG -cbc, cmp, trops, pro-BNP -coags -UA, Udip -IV fluids -Zofran 1440--pt seen and reevaluated States that she feels better after the Med and fluid. Still endorsing feeling a little dizzy but feels better overall Blood work and EKG findings reviewed with patient EKG nonspecific ST changes noted, rate of 69 (as noted on previous EKG 05/2017) Blood work wnl, neg trop x 1 Pt encouraged to follow up with PMD in clinic for maintenance of her HTN and DM -1x dose of Meclazine 13:45--pt re-evaluated Feels well, back to baseline per pt Dizziness resolved at this time Will pt home with follow up in clinic in 1 week Pt to continue PO bp meds daily as prescribed ER precautions reviewed with patient Pt agrees with plan (Shaunna Castellanos) - Lab Interpretations Lab Results: 07/30/18 11:27 07/30/18 11:27 Lab Results 07/30/18 11:27: PT 11.5, INR 1.0, APTT 29.8 07/30/18 11:27: Sodium 139, Potassium 3.7, Chloride 101, Carbon Dioxide 30, Anion Gap 12, BUN 18 H, Creatinine 0.7, Est GFR ( Amer) > 60, Est GFR ( Non-Af Amer) > 60, Random Glucose 110 H, Calcium 10.3 H, Total Bilirubin 0.5, AST 26, ALT 37, Alkaline Phosphatase 85, Troponin I < 0.0120, NT-Pro-B Natriuret Pep 38.8, Total Protein 7.0, Albumin 4.1, Globulin 2.9, Albumin/ Globulin Ratio 1.4 07/30/18 11:27: WBC 9.6, RBC 4.99, Hgb 14.1, Hct 41.5, MCV 83.2, MCH 28.4, MCHC 34.1, RDW 14.3, Plt Count 258, MPV 8.3, Neut % (Auto) 64.6, Lymph % (Auto) 27.8 , Dyer % (Auto) 5.2, Eos % (Auto) 2.0, Baso % (Auto) 0.4, Neut # (Auto) 6.2, Lymph # (Auto) 2.7, Dyer # (Auto) 0.5, Eos # (Auto) 0.2, Baso # (Auto) 0.0 07/30/18 10:50: Urine Color Yellow, Urine Clarity Cloudy, Urine pH 5.0, Ur Specific Miller 1.020, Urine Protein 30, Urine Glucose (UA) Neg, Urine Ketones Negative, Urine Blood Negative, Urine Nitrate Negative, Urine Bilirubin Negative , Urine Urobilinogen 0.2-1.0, Ur Leukocyte Esterase Small, Urine RBC (Auto) 4 H , Urine Microscopic WBC 8 H, Ur Squamous Epith Cells 10 H, Ur Transition Epith Cell 1, Urine Bacteria Rare 07/30/18 10:22: POC Glucose (mg/dL) 119 H - Medication Orders Current Medication Orders: Sodium Chloride (Sodium Chloride 0.9%) 1,000 mls @ 999 mls/hr IV .Q1H1M CHECO Stop: 07/31/18 10:44 Last Admin: 07/30/18 10:53 Dose: 999 mls/hr eMAR Start Stop Document 07/30/18 10:53 [email or web address] (Rec: 07/30/18 10:57 [email or web address] [id number]) Intravenous Solution Start Date 07/30/18 Start Time 10:57 End Date 07/30/18 End time 11:57 Total Infusion Time 60 Discontinued Medications Meclizine HCl (Antivert) 12.5 mg PO ONCE ONE Stop: 07/30/18 12:38 Last Admin: 07/30/18 12:45 Dose: 12.5 mg Ondansetron HCl (Zofran Inj) 4 mg IVP ONCE ONE Stop: 07/30/18 10:45 Last Admin: 07/30/18 10:57 Dose: 4 mg IVP Administration Document 07/30/18 10:57 [email or web address] (Rec: 07/30/18 10:57 [email or web address] [id number]) Charges for Administration # of IVP Administrations 1 Disposition/Present on Arrival <Jean Carlos Medel III - Last Filed: 07/30/18 13:53> - Present on Arrival Any Indicators Present on Arrival: No History of DVT/PE: No History of Uncontrolled Diabetes: No Urinary Catheter: No - Disposition Have Diagnosis and Disposition been Completed?: Yes Disposition Time: 13:59 <Shaunna Castellanos - Last Filed: 07/30/18 14:00> - Disposition Diagnosis: Dizziness, Uncontrolled hypertension Patient Problems: Current Active Problems Problem Status Onset Dizziness Acute Uncontrolled hypertension Acute Condition: STABLE Discharge Instructions (ExitCare): DASH Diet, High Blood Pressure (DC) Additional Instructions: FOLLOWUP WITH CLINIC NEXT WEEK FOR RE-EVALUATION. RETURN TO ER FOR ANY PAIN, DIZZINESS, WEAKNESS OR ANY CONCERN. TAKE YOUR BLOOD PRESSURE MEDICATIONS EVERYDAY DIRECTED. Referrals: [facility] [Outside] Forms: [employer] (Icelandic) Attending/Attestation - Attestation I have personally seen and examined this patient.: Yes I have fully participated in the care of the patient.: Yes I have reviewed all pertinent clinical information, including history, physical exam and plan: Yes <Jean Carlos Medel III - Last Filed: 07/30/18 13:53> <Shaunna Castellanos - Last Filed: 07/30/18 14:00> - Attestation Notes (Text): 07/30/18 13:53 pt seen and examined w resident agree w findings, diagnostics reviewed, ekg no change from prior, will see clinic next week for followup, asymptomatic on re- eval at 150p (Jean Carlos Medel III)
[2018-07-30] MEDS ORDERED: Sodium Chloride 0.9% 1,000 ML IV SCH (10:45)
[2018-07-30 11:03] LABS: SQUAMOUS EPITHIAL 10 /hpf (0-5); URINE BACTERIA RARE (<OCC); URINE BILIRUBIN NEGATIVE (NEGATIVE); URINE BLOOD NEGATIVE (NEGATIVE); URINE CLARITY CLOUDY (Clear); URINE COLOR YELLOW (YELLOW); URINE GLUCOSE (UA) NEG (Normal); URINE LEUKOCYTE ESTERASE SMALL Leu/uL (Negative); URINE PROTEIN 30 mg/dL (NEGATIVE); URINE UROBILINOGEN 0.2-1.0 mg/dL (0.2-1.0)
[2018-07-30 11:41] LABS: BASO % 0.4 % (0.0-2.0); EOS # 0.2 K/uL (0.0-0.7); HEMOGLOBIN 14.1 g/dL (12.0-16.0); LYMPH # 2.7 K/uL (1.0-4.3); LYMPH % 27.8 % (20.0-40.0); MEAN CELL VOLUME 83.2 fl (81.0-99.0); MEAN CORPUSCULAR HEMOGLOBIN 28.4 pg (27.0-31.0); MEAN CORPUSCULAR HGB CONC 34.1 g/dL (33.0-37.0); MEAN PLATELET VOLUME 8.3 fl (7.2-11.7); MONO # 0.5 K/uL (0.0-0.8); MONO % 5.2 % (0.0-10.0); NEUT # 6.2 K/uL (1.8-7.0); NEUT % 64.6 % (50.0-75.0); NRBC % 0.3 % (0.0-0.0); RBC 4.99 Mil/uL (3.80-5.20); RED CELL DISTRIBUTION WIDTH 14.3 % (11.5-14.5); WHITE BLOOD COUNT 9.6 K/uL (4.8-10.8)
[2018-07-30 11:45] LABS: PROTHROMBIN TIME 11.5 Seconds (9.8-13.1)
[2018-07-30 11:48] LABS: PARTIAL THROMBOPLASTIN TIME 29.8 Seconds (25.6-37.1)
[2018-07-30 12:02] LABS: ALB/GLOB RATIO 1.4 (1.0-2.1); ALBUMIN 4.1 g/dL (3.5-5.0); ALT/SGPT 37 U/L (9-52); AST/SGOT 26 U/L (14-36); BLOOD UREA NITROGEN 18 mg/dl (7-17); CALCIUM 10.3 mg/dL (8.4-10.2); GFR NON-AFRICAN AMERICAN > 60
[2018-07-30 12:20] LABS: B-TYPE NATRIURETIC PEPTIDE 38.8 pg/ml (0-900)
[2018-07-30 14:16] VITALS: BP 133/65; PULSE 78; RESP 18; TEMP 98; O2SAT 98
--- NOTE | 2018-07-30 21:12 | CARD ---
APPROVED REPORT Date of service: 07/30/2018 <Conclusion> Normal sinus rhythm Minimal voltage criteria for LVH, may be normal variant Nonspecific T wave abnormality Abnormal ECG
== END 2018-07-30 14:18 | disposition home or self-care (01) ==
LOC: H.ER 09:42
DX: R42 Dizziness and giddiness (principal); I16.0 Hypertensive urgency; E11.9 Type 2 diabetes mellitus without complications; I10 Essential (primary) hypertension; Z79.84 Long term (current) use of oral hypoglycemic drugs
CPT/HCPCS: 80053; 81003; 82948; 83880; 84484; 85025; 85610; 85730; 93005; 96361; 96374; 99284; J2405; J7030